=== PATIENT | male | born 1955 | race Asian ===

== ENCOUNTER 2017-08-02 13:22 | Day surgery (SDC) | payer BC ==
[2017-08-02] MEDS ORDERED: PROPOFOL 40 ML (17:04)
== END 2017-08-02 17:58 | disposition home or self-care (01) ==
LOC: GIL 13:22
DX: D12.2 Benign neoplasm of ascending colon (principal); D12.0 Benign neoplasm of cecum; D12.4 Benign neoplasm of descending colon; K64.8 Other hemorrhoids; E11.9 Type 2 diabetes mellitus without complications; I10 Essential (primary) hypertension
CPT/HCPCS: 45380; 82962; 88305